=== PATIENT | male | born 1960 ===

== ENCOUNTER → 2017-01-14 | Outpatient (CLI) | payer OTHER ==
--- NOTE | 2017-03-01 06:48 | CODING QUERY NO DIAGNOSIS ---
TREATMENT RENDERED WITHOUT A DIAGNOSIS Dr. Stanford, To promote full compliance with coding requirements relating to patient care, physician participation is requested in all cases of clinical coder uncertainty. Please assist us with providing a diagnosis/symptom for the test(s) below: A diagnosis/symptom was not documented on your Order. A valid diagnosis/symptom is required to bill all insurances. Please remember that we are unable to code a diagnosis of rule out, probable, possible, questionable, or suspected. Tests that require a diagnosis: * GRAM STAIN, DIRECT SMEAR DIAGNOSIS: * ID, CULTURE ISOLATE DIAGNOSIS: * M.I.C. SENSITIVITY DIAGNOSIS: * ID, CULTURE ISOLATE DIAGNOSIS: * CULTURE, BACTERIAL, ANY SOURCE DIAGNOSIS: * CULTURE, BACT., DEF; ANY SOURC DIAGNOSIS: DATE OF SERVICE: 01/14/17 Provider Signature: Date: Thank you [facility] Information Management Once completed, please kindly fax back to [phone] For questions please call [phone]
== END | disposition home or self-care (01) ==
LOC: C.LABSPEC 17:37
PROVIDERS: ATTEND Orthopaedic Surgery
DX: M79.89 Other specified soft tissue disorders (principal)

== ENCOUNTER → 2017-01-14 | Outpatient (CLI) | payer OTHER | END | disposition home or self-care (01) | LOC: C.PATHSPEC 17:23 | PROVIDERS: ATTEND Orthopaedic Surgery | DX: L57.0 Actinic keratosis (principal); L92.0 Granuloma annulare ==